=== PATIENT | female | born 1985 | race Caucasian/White ===

== ENCOUNTER → 2018-11-13 | Outpatient (CLI) | payer OTHER, MEDICAID | END | disposition home or self-care (01) | LOC: SLP 20:32 | PROVIDERS: ATTEND Internal Medicine | DX: G47.33 Obstructive sleep apnea (adult) (pediatric) (principal) | CPT/HCPCS: 95810 ==

== ENCOUNTER → 2018-12-03 | Outpatient (CLI) | payer OTHER, MEDICAID ==
--- NOTE | 2018-12-04 06:09 | NUR ---
PATIENT WOKE UP WITH STOMACH GAS, CRAMPING, TIGHTNESS AND NAUSEATED. OFFERED PATIENT TO TAKE HER TO ER TO BE EVALUATED BY ER PHYSICIAN AND REFUSED AND ELECTED TO GO HOME. Addendum: 12/04/18 at 0612 by FAROOQ ECHOLS Amended: Links added.
== END | disposition home or self-care (01) ==
LOC: SLP 20:38
PROVIDERS: ATTEND Internal Medicine
DX: G47.33 Obstructive sleep apnea (adult) (pediatric) (principal)
CPT/HCPCS: 95811